=== PATIENT | female | born 2000 | race Caucasian/White ===

== ENCOUNTER 2018-05-21 23:20 | Emergency (ER) | payer OTHER ==
--- NOTE | 2018-05-21 23:52 | ED ---
HPI Cardiac - HPI Summary HPI Summary: This patient is a 17 year old female presenting to [facility] with a chief complaint of dysrhythmia since this morning. Patient states that she felt like her heart was double beating, and felt hyperaware of her heartbeat. Patient states that the sensation was intermittent and lasted in 5 minute intervals. Patient states that she has been in the ED before for the same symptoms and states that she was told to come into the ED if she experienced the same symptoms. The pain is rated 2/10 in severity. Symptoms aggravated by nothing. Symptoms alleviated by nothing. Patient denies SOB, lightheadedness - History of Current Complaint Chief Complaint: EDDysrhythmPalp Stated Complaint: CHEST PAINS Hx Obtained From: Patient Onset/Duration: Started Hours Ago, Resolved Timing: Intermittent, Lasting Minutes - 5 Initial Severity: Mild Current Severity: None Pain Intensity: 2 Pain Scale Used: 0-10 Numeric Aggravating Factor(s): Nothing Alleviating Factor(s): Nothing Associated Signs and Symptoms: Positive: Negative - SOB, lightheadedness - Allergy/Home Medications Allergies/Adverse Reactions: Allergies Allergy/AdvReac Type Severity Reaction Status Date / Time No Known Allergies Allergy Verified 05/21/18 23:24 PMH/Surg Hx/FS Hx/Imm Hx Previously Healthy: Yes Opthamlomology History: Denies: Hx Legally Blind EENT History: Denies: Hx Deafness Infectious Disease History: No Infectious Disease History: Denies: Traveled Outside the [place] in Last 30 Days - Family History Known Family History: Positive: Hypertension - Social History Alcohol Use: None Hx Substance Use: No Substance Use Type: Reports: None Hx Tobacco Use: No Smoking Status (MU): Never Smoked Tobacco Review of Systems Negative: Fever Positive: Palpitations, Other - dysrhythmia Negative: Shortness Of Breath Neurological: Negative - lightheadedness All Other Systems Reviewed And Are Negative: Yes Physical Exam - Summary Physical Exam Summary: Appearance: Well-appearing, Well-nourished, lying in bed comfortably Skin: Warm, dry, no obvious rash Eyes: sclera anicteric, no conjunctival pallor ENT: mucous membranes moist, pharynx appears normal Neck: Supple, nontender Respiratory: Clear to auscultation, no signs of respiratory distress Cardiovascular: Normal S1, S2. No murmurs. Normal distal pulses in tibial and radial bilaterally. Abdomen: Soft, nontender, normal active bowel sounds present Musculoskeletal: Normal, Strength/ROM Intact Neurological: A&Ox3, awake and alert, mentation is normal, speech is fluent and appropriate Psychiatric: affect is normal, does not appear anxious or depressed Triage Information Reviewed: Yes Vital Signs On Initial Exam: Initial Vitals Temp Pulse Resp BP Pulse Ox 98.6 F 115 20 154/95 98 05/21/18 23:23 05/21/18 23:23 05/21/18 23:23 05/21/18 23:23 05/21/18 23:23 Vital Signs Reviewed: Yes Diagnostics - Vital Signs Vital Signs Temp Pulse Resp BP Pulse Ox 05/21/18 23:23 98.6 F 115 20 154/95 98 - Laboratory Lab Statement: Any lab studies that have been ordered have been reviewed, and results considered in the medical decision making process. - EKG 2328 Cardiac Rate: Tachycardia EKG Rhythm: Sinus Tachycardia - 115 BPM Summary of EKG Findings: An EKG, taken 2327, reveals Sinus Tachycardia (115 BPM) , P waves, QRS complex, and T waves are within normal limits, T waves and intervals are normal, no ischemic changes. Normal EKG Disposition - Course Course Of Treatment: This patient is a 17 year old female presenting to [facility] with a chief complaint of dysrhythmia since this morning. Patient states that she felt like her heart was double beating, and felt hyperaware of her heartbeat. An EKG, taken 2327, reveals Sinus Tachycardia (115 BPM), P waves, QRS complex, and T waves are within normal limits, T waves and intervals are normal, no ischemic changes. Normal EKG. Patient will be discharged with a dx of heart palpitations. Patient is advised to follow up with PCP in 3 days. The patient is agreeable with this plan. - Diagnoses Provider Diagnoses: Heart palpitations Discharge - Sign-Out/Discharge Documenting (check all that apply): Patient Departure - Discharge Plan Condition: Stable Disposition: HOME Patient Education Materials: Heart Palpitations (ED) Referrals: Giovani Islas MD [Medical Doctor] - Additional Instructions: If this continues to be a problem, you should check back with the physician who saw your for this previously. I suspect the symptoms may wax and wane periodically. Sometimes keeping a food diary or being aware of new things in your environment can identify a trigger. - Attestation Statements Document Initiated by Scribe: Yes Documenting Scribe: Betsey Perkins Provider For Whom Dialloibjosé antonio is Documenting (Include Credential): Corwin Ray MD Scribe Attestation: IBetsey, scribed for Corwin Ray MD on 05/21/18 at [id number]. Status of Scribe Document: Ready
[2018-05-22 00:05] VITALS: BP 133/95
== END 2018-05-22 00:02 | disposition home or self-care (01) ==
LOC: ED 23:20
DX: R00.2 Palpitations (principal); R42 Dizziness and giddiness
CPT/HCPCS: 93005; 99281

== ENCOUNTER 2018-06-23 19:35 | Emergency (ER) | payer BC, OTHER ==
[2018-06-23 20:19] LABS: ABS Basophils 0 10^3/ul (0-0.2); ABS Eosinophils 0.1 10^3/ul (0-0.6); ABS Lymphocytes 2.9 10^3/ul (1.0-4.8); ABS Neutrophils 4.8 10^3/ul (1.5-7.7); ABS Nucleated RBC 0 10^3/ul; Eosinophil % 0.9 %; Hematocrit 36 % (35-47); Hemoglobin 12.5 g/dl (12.0-16.0); Lymphocyte % 32.8 %; Mean Corpuscular HGB Conc 35 g/dl (31-36); Mean Corpuscular Hemoglobin 30 pg (27-31); Mean Corpuscular Volume 85 fL (80-97); Mean Platelet Volume 7.4 fL (7.4-10.4); Nucleated Red Blood Cells % 0; Platelet Count 231 10^3/ul (150-450); Red Blood Count 4.24 10^6/ul (4.00-5.40); Red Cell Distribution Width 14 % (10.5-15); White Blood Count 8.8 10^3/ul (3.5-10.8)
[2018-06-23 20:36] LABS: Albumin 4.1 g/dL (3.2-5.2); Albumin/Globulin Ratio 1.3 (1-3); BUN/Creatinine Ratio 13.1 (8-20); C Reactive Protein 2.44 mg/L (<8.01); Calcium 9.5 mg/dL (8.6-10.3); EGFR Non-African American 87.3 (>60); Globulin 3.1 g/dL (2-4); Total Bilirubin 0.4 mg/dL (0.2-1.0); Total Protein 7.2 g/dL (6.4-8.9)
[2018-06-23 20:54] LABS: TSH (Thyroid Stimulating Horm) 1.02 mcIU/mL (0.34-5.60)
--- NOTE | 2018-06-23 21:18 | ED ---
Dizziness - HPI Summary HPI Summary: Patient complains of episodes of lightheadedness, chest tightness, shortness of breath lasting about 15 minutes after exercise and when going out in the cold. Patient states symptoms are new onset. 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 States symptoms have been only after training sessions or when going outside. Patient also complains of long plane ride to [place] and back early this month, is on OCPs. Denies history of blood clots, recent surgery or trauma, . Denies fever, cough, sore throat, CP, SOB, N/V/D, abdominal pain, change in urine, change in BM, vaginal symptoms. Nonsmoker, denies recreational drugs, EtOH, excessive caffeine or energy stimulants. Medical history is none. Hydrates regularly. No new medications. - History Of Current Complaint Chief Complaint: EDDizziness Stated Complaint: LIGHT HEADED/CHEST TIGHTNESS Time Seen by Provider: 06/23/18 19:51 Hx Obtained From: Patient Onset/Duration: Resolved Timing: Minutes Severity Initially: Mild Severity Currently: Mild Character: Lightheaded Aggravating Factor(s): Other Alleviating Factor(s): Nothing - Allergies/Home Medications Allergies/Adverse Reactions: Allergies Allergy/AdvReac Type Severity Reaction Status Date / Time No Known Allergies Allergy Verified 06/23/18 19:42 Home Medications: Home Medications Norgestimate-Ethinyl Estradiol [Sau-Ai-Kjtrhv Tablet] 1 tab PO DAILY 06/23/18 [ History Confirmed 06/23/18] PMH/Surg Hx/FS Hx/Imm Hx Endocrine/Hematology History: Denies: Hx Anticoagulant Therapy Cardiovascular History: Denies: Hx Cardiac Arrest History: Denies: Hx Dialysis Musculoskeletal History: Denies: Hx Rheumatoid Arthritis Sensory History: Denies: Hx Eye Prosthesis, Hx Legally Blind, Hx Deafness Opthamlomology History: Denies: Hx Legally Blind Neurological History: Denies: Hx CVA, Hx Developmental Delay Psychiatric History: Denies: Hx Autism Infectious Disease History: No Infectious Disease History: Reports: Traveled Outside the [place] in Last 30 Days - [place] - Family History Known Family History: Positive: Hypertension - Social History Occupation: Student Alcohol Use: Rare Hx Substance Use: No Substance Use Type: Reports: None Hx Tobacco Use: No Smoking Status (MU): Never Smoked Tobacco Review of Systems Constitutional: Negative Eyes: Negative ENT: Negative Cardiovascular: Negative Positive: Shortness Of Breath Gastrointestinal: Negative Genitourinary: Negative Musculoskeletal: Negative Skin: Negative Neurological: Negative Psychological: Normal All Other Systems Reviewed And Are Negative: Yes Physical Exam - Summary Physical Exam Summary: Lungs sounds clear to auscultation bilaterally. RRR. Physical exam unremarkable. Triage Information Reviewed: Yes Vital Signs On Initial Exam: Initial Vitals Temp Pulse Resp BP Pulse Ox 98.4 F 85 16 142/92 100 06/23/18 19:38 06/23/18 19:38 06/23/18 19:38 06/23/18 19:38 06/23/18 19:38 Vital Signs Reviewed: Yes Appearance: Positive: Well-Appearing Skin: Positive: Warm Head/Face: Positive: Normal Head/Face Inspection Eyes: Positive: Normal ENT: Positive: Normal ENT inspection Neck: Positive: Supple Respiratory/Lung Sounds: Positive: Clear to Auscultation Cardiovascular: Positive: Normal Abdomen Description: Positive: Nontender Musculoskeletal: Positive: Normal Neurological: Positive: Normal Psychiatric: Positive: Normal AVPU Assessment: Alert - [place] Coma Scale Best Eye Response: 4 - Spontaneous Best Motor Response: 6 - Obeys Commands Best Verbal Response: 5 - Oriented Coma Scale Total: 15 Diagnostics - Vital Signs Vital Signs Temp Pulse Resp BP Pulse Ox 06/23/18 20:40 97 128/87 91 06/23/18 20:39 93 124/73 99 06/23/18 20:38 74 119/71 99 06/23/18 20:24 81 127/77 74 06/23/18 20:00 82 99 06/23/18 19:54 79 135/82 100 06/23/18 19:53 77 99 06/23/18 19:38 98.4 F 85 16 142/92 100 - Laboratory Lab Results: Lab Results 06/23/18 06/23/18 06/23/18 Range/Units 19:19 19:19 19:19 WBC 8.8 (3.5-10.8) 10^3/ul RBC 4.24 (4.00-5.40) 10^6/ul Hgb 12.5 (12.0-16.0) g/dl Hct 36 (35-47) % MCV 85 (80-97) fL MCH 30 (27-31) pg MCHC 35 (31-36) g/dl RDW 14 (10.5-15) % Plt Count 231 (150-450) 10^3/ul MPV 7.4 (7.4-10.4) fL Neut % (Auto) 54.8 % Lymph % (Auto) 32.8 % [place]ing % (Auto) 11.2 % Eos % (Auto) 0.9 % Baso % (Auto) 0.3 % Absolute Neuts (auto) 4.8 (1.5-7.7) 10^3/ul Absolute Lymphs (auto) 2.9 (1.0-4.8) 10^3/ul Absolute Monos (auto) 1.0 H (0-0.8) 10^3/ul Absolute Eos (auto) 0.1 (0-0.6) 10^3/ul Absolute Basos (auto) 0 (0-0.2) 10^3/ul Absolute Nucleated RBC 0 10^3/ul Nucleated RBC % 0 D-Dimer, Quantitative < 200 (Less Than 230) ng/mL Sodium 137 (135-145) mmol/L Potassium 4.0 (3.5-5.0) mmol/L Chloride 106 (101-111) mmol/L Carbon Dioxide 25 (22-32) mmol/L Anion Gap 6 (2-11) mmol/L BUN 11 (6-24) mg/dL Creatinine 0.84 (0.51-0.95) mg/dL Est GFR ( Amer) 105.7 (>60) Est GFR (Non-Af Amer) 87.3 (>60) BUN/Creatinine Ratio 13.1 (8-20) Glucose 111 H (70-100) mg/dL Calcium 9.5 (8.6-10.3) mg/dL Total Bilirubin 0.40 (0.2-1.0) mg/dL AST 32 (13-39) U/L ALT 20 (7-52) U/L Alkaline Phosphatase 56 (34-104) U/L Troponin I 0.00 (<0.04) ng/mL C-Reactive Protein 2.44 (<8.01) mg/L Total Protein 7.2 (6.4-8.9) g/dL Albumin 4.1 (3.2-5.2) g/dL Globulin 3.1 (2-4) g/dL Albumin/Globulin Ratio 1.3 (1-3) TSH 1.02 (0.34-5.60) mcIU/mL Result Diagrams: 06/23/18 19:19 06/23/18 19:19 Lab Statement: Any lab studies that have been ordered have been reviewed, and results considered in the medical decision making process. Dizzy Course/Dx - Course Course Of Treatment: Patient complains of episodes of lightheadedness, chest tightness, shortness of breath lasting about 15 minutes after exercise and when going out in the cold. Patient states symptoms are new onset. 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 States symptoms have been only after training sessions or when going outside. Patient also complains of long plane ride to [place] and back early this month, is on OCPs. Denies history of blood clots, recent surgery or trauma, . Denies fever, cough, sore throat, CP, SOB, N/V/D , abdominal pain, change in urine, change in BM, vaginal symptoms. Nonsmoker, denies recreational drugs, EtOH, excessive caffeine or energy stimulants. Medical history is none. Hydrates regularly. No new medications. Physical exam:Lungs sounds clear to auscultation bilaterally. RRR. Physical exam unremarkable. Vital signs within normal limits. EKG sinus rhythm. Chest x- ray unremarkable. Labs unremarkable. D-dimer negative. Follow-up with primary care - Diagnoses Provider Diagnoses: Lightheadedness, Chest tightness Discharge - Sign-Out/Discharge Documenting (check all that apply): Patient Departure - Discharge Plan Condition: Stable Disposition: HOME Prescriptions: Albuterol HFA INHALER* [Ventolin HFA Inhaler*] 1 - 2 puff INH Q4H PRN #1 mdi PRN Reason: Sob/Wheezing Patient Education Materials: Lightheadedness (ED) Referrals: No Primary Care Phys,NOPCP [Primary Care Provider] - [facility] [Outside] Additional Instructions: Use inhaler as directed. Observe pattern of episodes of lightheadedness. You may follow-up with primary care at [facility] locally here [place] or with primary care at home should symptoms persist. Return to the ED for any new or worsening symptoms. - Billing Disposition and Condition Condition: STABLE Disposition: Home
[2018-06-23 21:32] VITALS: BP 119/76
== END 2018-06-23 21:32 | disposition home or self-care (01) ==
LOC: ED 19:35
DX: R42 Dizziness and giddiness (principal); R07.89 Other chest pain
CPT/HCPCS: 36415; 71045; 80053; 84443; 84484; 85025; 85379; 86140; 93005; 99283

== ENCOUNTER 2018-12-02 21:04 | Emergency (ER) | payer BC ==
--- NOTE | 2018-12-02 23:59 | ED ---
Neurological HPI - HPI Summary HPI Summary: This patient is a 18 year old F presenting to ED with a chief complaint of left neck numbness since 1800 today. The numbness radiates into the left arm. She also reports a pinching in the left leg and BERG. Patient denies CP, SOB, dizziness. Her symptoms have been improving. The patient rates the pain 0/10 in severity. Symptoms aggravated by nothing. Symptoms alleviated by nothing. Patient reports mild BERG, pinching feeling in left leg. Patient denies CP, SOB, dizziness. - History of Current Complaint Chief Complaint: EDNeurologicalDeficit Stated Complaint: NUMBNESS IN NECK/ARM PER PT Time Seen by Provider: 12/02/18 23:46 Hx Obtained From: Patient Onset/Duration: Started hours ago - 1800 today, Still Present - Improved Timing: Constant Onset Severity: Mild Current Severity: Mild Pain Intensity: 0 Pain Scale Used: 0-10 Numeric Character: Numbness/Tingling - Left neck and arm, Other: - Pinching in left leg Aggravating: Nothing Alleviating: Nothing Associated Signs and Symptoms: Positive: Headache, Numbness - Left arm and neck , pinching in left leg - Allergy/Home Medications Allergies/Adverse Reactions: Allergies Allergy/AdvReac Type Severity Reaction Status Date / Time No Known Allergies Allergy Verified 12/02/18 23:56 PMH/Surg Hx/FS Hx/Imm Hx Endocrine/Hematology History: Denies: Hx Anticoagulant Therapy Cardiovascular History: Denies: Hx Cardiac Arrest History: Denies: Hx Dialysis Musculoskeletal History: Denies: Hx Rheumatoid Arthritis Sensory History: Denies: Hx Eye Prosthesis, Hx Legally Blind, Hx Deafness Opthamlomology History: Denies: Hx Eye Prosthesis, Hx Legally Blind Neurological History: Denies: Hx CVA, Hx Developmental Delay Psychiatric History: Denies: Hx Autism - Surgical History Surgery Procedure, Year, and Place: Denies Infectious Disease History: No Infectious Disease History: Denies: Traveled Outside the [place] in Last 30 Days - Family History Known Family History: Positive: Hypertension - Social History Alcohol Use: Rare Hx Substance Use: No Substance Use Type: Reports: None Hx Tobacco Use: No Smoking Status (MU): Never Smoked Tobacco Review of Systems Negative: Chest Pain Negative: Shortness Of Breath Neurological: Negative - Dizziness, Other - Pinching in left leg Positive: Headache, Numbness - Left neck and arm All Other Systems Reviewed And Are Negative: Yes Physical Exam - Summary Physical Exam Summary: Appearance: Well appearing, no pain distress Skin: warm, dry, reflects adequate perfusion Head/face: normal Eyes: EOMI, SRINIVASAN ENT: normal Neck: supple, non-tender Respiratory: CTA, breath sounds present Cardiovascular: RRR, pulses symmetrical Abdomen: non-tender, soft Musculoskeletal: normal, strength/ROM intact Neuro: normal, sensory motor intact, A&Ox3 Triage Information Reviewed: Yes Vital Signs On Initial Exam: Initial Vitals Temp Pulse Resp BP Pulse Ox 98.5 F 64 18 145/92 98 12/02/18 21:21 12/02/18 21:21 12/02/18 21:21 12/02/18 21:21 12/02/18 21:21 Vital Signs Reviewed: Yes Diagnostics - Vital Signs Vital Signs Temp Pulse Resp BP Pulse Ox 12/02/18 23:18 96.8 F 72 16 93/76 94 12/02/18 21:21 98.5 F 64 18 145/92 98 - Laboratory Lab Statement: Any lab studies that have been ordered have been reviewed, and results considered in the medical decision making process. - CT Brain CT Interpretation Completed By: Radiologist Summary of CT Findings: No acute intracranial abnormality. Dr. Larose has reviewed this radiology report. Re-Evaluation - Re-Evaluation First Eval Re-Evaluation Time: 01:27 Comment: Discussed results with patient. Patient will be discharged w dx of cervical radiculitis. Patient understands and agrees with this plan. Course/Dx - Course Course Of Treatment: This patient is a 18 year old F presenting to ED with a chief complaint of left neck numbness since [address] revealed no acute intracranial abnormality. Patient will be discharged w dx of cervical radiculitis. Patient understands and agrees with this plan. - Differential Dx Differential Diagnoses Neuro: Positive: Other - radiculitis lf arm - Diagnoses Provider Diagnoses: Cervical radiculitis Discharge - Sign-Out/Discharge Documenting (check all that apply): Patient Departure - Discharge Patient Received Moderate/Deep Sedation with Procedure: No - Discharge Plan Condition: Stable Disposition: HOME Patient Education Materials: Acute Headache (ED) Referrals: [facility] [Outside] - 3 Days Additional Instructions: Follow-up with your primary care provider in three days. RETURN TO THE ER FOR WORSENING OR CHANGING SYMPTOMS. - Billing Disposition and Condition Condition: STABLE Disposition: Home - Attestation Statements Document Initiated by Scribe: Yes Documenting Scribe: Nestor Carney Provider For Whom Olga is Documenting (Include Credential): Robinson Larose MD Scribe Attestation: Nestor Agee, scribed for Robinson Larose MD on 12/03/18 at 0137. Scribe Documentation Reviewed: Yes Provider Attestation: The documentation as recorded by the Nestor sal accurately reflects the service I personally performed and the decisions made by me, Robinson Larose MD Status of Scribe Document: Viewed
[2018-12-03 01:59] VITALS: BP 122/74
== END 2018-12-03 01:58 | disposition home or self-care (01) ==
LOC: ED 21:04
DX: M54.12 Radiculopathy, cervical region (principal)
CPT/HCPCS: 70450; 99282

== ENCOUNTER 2019-04-21 20:38 | Emergency (ER) | payer BC ==
--- NOTE | 2019-04-21 20:58 | UC ---
General HPI - HPI Summary HPI Summary: Patient's a 18-year-old female who states the little bit of sinus congestion with postnasal drip over the last 2 days. Patient states this evening she was lying in bed she was eating peanut butter cup. Patient states about 10-15 minutes after that she noticed that she felt like there was swelling in her throat. Patient states she was not drooling having difficulty swallowing or breathing. Patient states it just feels a little "full." Patient states she took an allergy medicine, called her mother who facetime and told her her tonsils were large and she should come be evaluated. Patient has not had any fevers or chills. Patient without any nausea or vomiting. Patient denies ear pain. Patient states she is actually feeling better since taking allergy medicine but states it still feels kind of full in her neck area. Patient denies any sick contacts. Patient without chest pain shortness of breath abdominal pain. No rash. No shortness of breath. No wheezing. Patient is able to drink without difficulty. no rash, hives. Patient states she felt this way once in the past. Patient states she typically eats peanut butter and has no problem. Patient without any food or allergies at she's aware of. Patient states his upper neck. No [id number] medications other than the allergy medication. Patient's medications reviewed this visit. - History of Current Complaint Chief Complaint: UCGeneralIllness Stated Complaint: SORE THROAT Time Seen by Provider: 04/21/19 20:57 Hx Obtained From: Patient Hx Last Menstrual Period: 04/20/19 Pain Intensity: 0 - Allergy/Home Medications Allergies/Adverse Reactions: Allergies Allergy/AdvReac Type Severity Reaction Status Date / Time No Known Allergies Allergy Verified 04/21/19 20:52 PMH/Surg Hx/FS Hx/Imm Hx Previously Healthy: Yes Other History Of: Negative For: Anticoagulant Therapy - Surgical History Surgical History: None Surgery Procedure, Year, and Place: Denies - Family History Known Family History: Positive: Hypertension, Non-Contributory - Social History Occupation: Student Lives: With Family Alcohol Use: Rare Substance Use Type: None Smoking Status (MU): Never Smoked Tobacco Review of Systems All Other Systems Reviewed And Are Negative: Yes Constitutional: Positive: Negative Skin: Positive: Negative Eyes: Positive: Negative ENT: Positive: Sore Throat, Other - + PND Respiratory: Positive: Negative Cardiovascular: Positive: Negative Gastrointestinal: Positive: Negative Motor: Positive: Negative Neurovascular: Positive: Negative Musculoskeletal: Positive: Negative Physical Exam - Summary Physical Exam Summary: Vital Signs Reviewed: Yes A+Ox3, no distress, speaking full easy sentences. No stridor, cough, wheeze. no difficulty with secretions Eyes: Conjunctiva Clear, SRINIVASAN. EOM intact and full ENT: Hearing grossly normal TM x 2 clear, turbinates inflammed and boggy, + mild PND, mmoist, uvula midline, no exudate, no erythema Neck: Positive: Supple, no LA Respiratory: Positive: No respiratory distress, No accessory muscle use + CTA throughout no w/r, no stridor, no increased RR Cardiovascular: RRR nl s1, s2 no m/r CBT <2 sec abd soft + BS nt/nd no guarding, no distension Musculoskeletal Exam: SALGUERO x 4 without difficulty Strength Intact, ROM Intact Neurological: Positive: Alert, + sensation throughout Psychological: Positive: Normal Response To rn l and d Skin: Positive: no rash, no ecchymosis, no edema (face, ext) Triage Information Reviewed: Yes Vital Signs: Initial Vital Signs Temp 99.2 F 04/21/19 20:47 Pulse 81 04/21/19 20:47 Resp 18 04/21/19 20:47 BP 129/82 04/21/19 20:47 Pulse Ox 97 04/21/19 20:47 Re-Evaluation - Re-Evaluation First Eval Re-Evaluation Time: 21:20 Change: Unchanged - feels okay - took pred without difficulty, strep neg Second Eval Re-Evaluation Time: 21:30 Change: Improved Comment: pt states she is feeling better - requested bottle of water, texting, no distress Third Eval Re-Evaluation Time: 21:52 Change: Improved Comment: pt states feels well. no complaints. vss. will discharge - d/w pt discharge instructions. strict return precautions, follow-up plan. comfort and agreement with plan Course/Dx - Course Course Of Treatment: Patient presents urgent care stating approximately one hour ago she was lying in bed. Patient states she can't better up. Patient states she is about 10 minutes later felt like she had some tickle in her throat. Patient states she feels some fullness to her throat. Patient does have sinus congestion without postnasal drip. Patient took an allergy medicine and called her mom who was concerned her tonsils were large and one or compare. Patient states she feels a little bit better following the allergy medicine. Patient without any drooling. No difficulty breathing. No edema of her face and lips or extremities. No rash. No stridor. People patient will follow secretions. Patient able to drink water without difficulty. Patient with history of similar. Patient has a fever without problems. Previous A. On exam vital signs are stable. Patient very well appearing. Patient does have some sinus congestion with postnasal. No concern of intraoral edema. Tonsils are not concerning large are not touching no exudate. Uvula midline. Patient without lymphadenopathy. We'll give patient prednisone check a strep. Given prednisone becomes unclear whether this was early allergy to improve with the antihistamine she took. Discussed with patient Benadryl. Offered to talk to mom or dad patient declined. We'll continue to monitor for at least 30 minutes. Patient called the plan. - Diagnoses Provider Diagnosis: Pharyngitis Discharge ED - Sign-Out/Discharge Documenting (check all that apply): Patient Departure All imaging exams completed and their final reports reviewed: No Studies - Discharge Plan Condition: Stable Disposition: HOME Prescriptions: predniSONE [Prednisone 20 MG TAB] 40 mg PO DAILY #8 tablet Patient Education Materials: Pharyngitis (ED) Referrals: [facility] [Z.BUSINESS, APPLICATION, OTHER] - No Primary Care Phys,NOPCP [Primary Care Provider] - Additional Instructions: The doctor that evaluated you today think that her symptoms are related to postnasal drip. There is no signs of an allergic reaction upon evaluation of urgent care today. The doctor, however, is started on prednisone in case it was a component of allergic reaction and your symptoms symptoms have improved since you took an allergy pill prior to arrival. The doctor recommends the following: - Take prednisone once a day for the next 4 days starting tomorrow afternoon. Take his prescribed - Okay to take Benadryl 1-2 tablets every 6 hours. This medication may cause drowsiness. Do not drive, operative equipment, or drink alcohol while taking - It is okay to continue taking her allergy medication daily - Contact the [facility] tomorrow to schedule follow-up appointment this week - If you develop any change in her symptoms which includes hives, shortness of breath, difficulty swallowing, difficulty talking, drooling, or feeling like you have to clear ear throat because sure spit doesn't go down it's recommended to call 911 and go immediately to emergency department. - Because there is a very small possibility this is related to pain of S recommended she did not eat any foods that have pain upon her opiate-containing products until you are seen in follow-up. - Billing Disposition and Condition Condition: STABLE Disposition: Home
[2019-04-21] MEDS ORDERED: predniSONE TAB* 20 MG PO ONE (21:06)
[2019-04-21 21:50] VITALS: BP 124/75
== END 2019-04-21 22:01 | disposition home or self-care (01) ==
LOC: UCEAST 20:38
DX: J02.9 Acute pharyngitis, unspecified (principal); R09.81 Nasal congestion; R09.82 Postnasal drip
CPT/HCPCS: 87651; 99212; G0463; J7512